=== PATIENT | female | born 1995 | race Caucasian/White ===

== ENCOUNTER 2018-11-14 14:29 | Emergency (ER) | payer OTHER ==
[~2018-11-14] VITALS: Ht 165.1 cm; Wt 62.8 kg
[2018-11-14 14:29] VITALS: BP 142/84
[2018-11-14 15:32] LABS: INFLUENZA A AMPLIFICATION NEGATIVE (NEGATIVE); INFLUENZA B AMPLIFICATION NEGATIVE (NEGATIVE)
[2018-11-14] MEDS ORDERED: PROAAER10 INH (15:40)
[2018-11-14] MEDS ORDERED: AMOX500C PO (15:40)
== END 2018-11-14 15:44 | disposition home or self-care (01) ==
LOC: M ED 14:29
DX: J02.0 Streptococcal pharyngitis (principal); J45.909 Unspecified asthma, uncomplicated; F17.210 Nicotine dependence, cigarettes, uncomplicated